=== PATIENT | female | born 1990 | race Caucasian/White ===

== ENCOUNTER 2020-02-05 12:51 | Emergency (ER) | payer BC ==
[2020-02-05] MEDS ORDERED: OXYCODONE-ACETAMINOPHEN 5-325 MG TABLET PO ONE (13:04)
--- NOTE | 2020-02-05 13:06 | ER Document Report ---
ED Medical Screen (RME) - General Chief Complaint: Abscess Stated Complaint: ABSCESS Time Seen by Provider: 02/05/20 13:00 Primary Care Provider: MALCOLM SALGADO MD [Primary Care Provider] - Follow up as needed Mode of Arrival: Ambulatory Information source: Patient Notes: 29-year-old female presented to ED for large pilonidal cyst. She states she is never had it this big before. She states she has had it I&D in the past. She does not have any history of MRSA. She does have a history of asthma. Her last menstrual period was 428. She states she found out she just had a miscarriage on Wednesday. He did have an ultrasound to find out she had miscarried. I have greeted and performed a rapid initial assessment of this patient. A comprehensive ED assessment and evaluation of the patient, analysis of test results and completion of medical decision making process will be conducted by an additional ED providers. TRAVEL OUTSIDE OF THE [place] IN LAST 30 DAYS: No - Related Data Allergies/Adverse Reactions: nickel Allergy (Verified 02/05/20 12:59) Past Medical History - Social History Frequency of alcohol use: Occasional Drug Abuse: None Physical Exam - Vital signs Vitals: Temp Pulse Resp BP Pulse Ox 98.7 F 86 18 117/79 100 02/05/20 12:58 02/05/20 12:58 02/05/20 12:58 02/05/20 12:58 02/05/20 12:58 Course - Vital Signs Vital signs: Temp Pulse Resp BP Pulse Ox 98.7 F 86 18 117/79 100 02/05/20 13:00 02/05/20 12:58 02/05/20 12:58 02/05/20 12:58 02/05/20 12:58 Doctor's Discharge - Discharge Referrals: MALCOLM SALGADO MD [Primary Care Provider] - Follow up as needed
[2020-02-05 13:56] LABS: ABSOLUTE EOSINOPHILS # (AUTO) 0.4 10^3/uL (0.0-0.6); ABSOLUTE LYMPHOCYTES (AUTO) 1.5 10^3/uL (0.5-4.7); ABSOLUTE MONOCYTES (AUTO) 0.6 10^3/uL (0.1-1.4); BASOPHILS % (AUTO) 0.3 % (0-2); EOSINOPHILS % (AUTO) 4.9 % (0-6); HEMATOCRIT 39.5 % (36.0-47.0); HEMOGLOBIN 13.7 g/dL (12.0-15.5); LYMPHOCYTES % (AUTO) 17.9 % (13-45); MEAN CORPUSCULAR HGB CONC 34.8 g/dL (32.0-36.0); MEAN CORPUSCULAR VOLUME 86 fl (80-97); MONOCYTES % (AUTO) 6.9 % (3-13); PLATELET COUNT 202 10^3/uL (150-450); RED BLOOD COUNT 4.57 10^6/uL (3.72-5.28); TOTAL CELLS COUNTED % (AUTO) 100 %; WHITE BLOOD COUNT 8.6 10^3/uL (4.0-10.5)
[2020-02-05 14:05] LABS: APPEARANCE,URINE SLIGHTLY-CLOUDY; BILIRUBIN,URINE NEGATIVE (NEGATIVE); COLOR,URINE YELLOW; GLUCOSE, URINE NEGATIVE (NEGATIVE); KETONES,URINE NEGATIVE (NEGATIVE); LEUKOCYTE ESTERASE,URINE NEGATIVE (NEGATIVE); NITRITE,URINE NEGATIVE (NEGATIVE); PROTEIN,URINE NEGATIVE (NEGATIVE); URINE SPECIFIC GRAVITY 1.016; UROBILINOGEN,URINE NEGATIVE mg/dL (<2.0)
[2020-02-05 14:09] LABS: ALBUMIN 4.4 g/dL (3.5-5.0); ALKALINE PHOSPHATASE 90 U/L (38-126); ANION GAP 5 (5-19); ASPARTATE AMINO TRANSFERASE 21 U/L (14-36); BILIRUBIN,TOTAL 0.6 mg/dL (0.2-1.3); BLOOD UREA NITROGEN 10 mg/dL (7-20); CALCIUM 9.7 mg/dL (8.4-10.2); CARBON DIOXIDE 27 mmol/L (22-30); CHLORIDE 105 mmol/L (98-107); GLUCOSE 89 mg/dL (75-110); POTASSIUM 4.1 mmol/L (3.6-5.0); TOTAL PROTEIN 7.6 g/dL (6.3-8.2)
--- NOTE | 2020-02-05 15:52 | ER Document Report ---
ED Skin Rash/Insect Bite/Abscs - General Chief Complaint: Abscess Stated Complaint: ABSCESS Time Seen by Provider: 02/05/20 13:00 Primary Care Provider: MALCOLM SALGADO MD [ACTIVE STAFF] - Follow up as needed MARCIN MULLEN MD [ACTIVE STAFF] - Follow up in 3-5 days (Call for outpatient follow-up appointment.) Mode of Arrival: Ambulatory Information source: Patient Notes: 29-year-old female past medical history significant for asthma presents to the emergency room complaining of a possible kind nidal abscess that she has had for the past 4 days. States she has had 2 or 3 over the past 2 years but is never had to have them lanced. States is been getting worse since yesterday. She denies any nausea, vomiting, no fevers. No trauma to her rectal area. Denies . TRAVEL OUTSIDE OF THE [place] IN LAST 30 DAYS: No - Related Data Allergies/Adverse Reactions: nickel Allergy (Verified 02/05/20 12:59) Past Medical History - General Information source: Patient - Social History Smoking Status: Never Smoker Frequency of alcohol use: Occasional Drug Abuse: None Family History: Reviewed & Not Pertinent Patient has homicidal ideation: No Review of Systems - Review of Systems Constitutional: No symptoms reported Cardiovascular: No symptoms reported Respiratory: No symptoms reported Gastrointestinal: No symptoms reported Skin: Other - Pilonidal abscess Neurological/Psychological: No symptoms reported -: Yes All other systems reviewed and negative Physical Exam - Vital signs Vitals: Temp Pulse Resp BP Pulse Ox 98.7 F 86 18 117/79 100 02/05/20 12:58 02/05/20 12:58 02/05/20 12:58 02/05/20 12:58 02/05/20 12:58 - General General appearance: Appears well, Alert In distress: Moderate - Respiratory Respiratory status: No respiratory distress Chest status: Nontender Breath sounds: Normal Chest palpation: Normal - Cardiovascular Rhythm: Regular Heart sounds: Normal auscultation Murmur: No - Abdominal Inspection: Normal Distension: No distension Bowel sounds: Normal Tenderness: Nontender Organomegaly: No organomegaly - Back Back: Normal, Nontender. No: CVA tenderness - Neurological Neuro grossly intact: Yes Cognition: Normal Orientation: AAOx4 [place] Coma Scale Eye Opening: Spontaneous [place] Coma Scale Verbal: Oriented [place] Coma Scale Motor: Obeys Commands [place] Coma Scale Total: 15 Speech: Normal Motor strength normal: LUE, RUE, LLE, RLE Sensory: Normal - Skin Skin Temperature: Warm Skin Moisture: Dry Skin Color: Normal Skin irregularity: Abscess Location of irregularity: Other - Buttock Character of irregularity: Erythematous Irregularity with: Swelling, Tenderness, Warmth Notes: Patient with a nonfluctuant 2 cm pilonidal abscess. There is a minimal amount of purulent drainage noted. It is erythematous, warm and tender to palpation. Course - Re-evaluation Re-evalutation: 02/05/20 15:50 Patient with a 2 cm nonfluctuant draining pilonidal cyst noted. It is warm and tender to palpation. Some purulent drainage noted. Patient is afebrile, nontoxic-appearing counseled on warm compresses 20 minutes 3 times a day. Antibiotics and pain medication as prescribed. Eforse reviewed no history of chronic narcotic abuse. Outpatient follow-up with general surgery as discussed. Provided with on-call physician. Patient was given strict return to the emergency room guidelines. Return for any new or worsening symptoms. All questions were answered. Patient verbalized understanding and agrees with plan of care. 02/05/20 20:32 - Vital Signs Vital signs: Temp Pulse Resp BP Pulse Ox 98.7 F 104 H 18 103/65 100 02/05/20 16:26 02/05/20 16:26 02/05/20 16:26 02/05/20 16:26 02/05/20 16:26 - Laboratory Result Diagrams: 02/05/20 13:15 02/05/20 13:15 Discharge - Discharge Clinical Impression: Pilonidal abscess Condition: Stable Disposition: HOME, SELF-CARE Instructions: Abscess ([facility]) Additional Instructions: Warm compresses and/or sitz bath 20 minutes 3 times a day. Medications as prescribed. Outpatient follow-up with general surgery as discussed. Return for any new or worsening symptoms. Prescriptions: Tramadol HCl [Ultram 50 mg Tablet] 50 mg PO Q4HP PRN #12 tab PRN Reason: Amoxicillin/Potassium Clav [Augmentin 875-125 Tablet] 1 tab PO Q12 #20 tablet Referrals: MALCOML SALGADO MD [ACTIVE STAFF] - Follow up as needed MARCIN MULLEN MD [ACTIVE STAFF] - Follow up in 3-5 days (Call for outpatient follow-up appointment.)
[2020-02-05 16:29] VITALS: BP 103/65
== END 2020-02-05 16:29 | disposition home or self-care (01) ==
LOC: ER 12:51
DX: L05.01 Pilonidal cyst with abscess (principal)
CPT/HCPCS: 36415; 80053; 81001; 85025; 99282

== ENCOUNTER 2020-03-28 08:18 | Day surgery (SDC) | payer BC ==
[~2020-03-28 08:18] MED LIST: CEFAZOLIN 2 GM/D5W RTU 2 GM/50 ML RTUPB IV PRN
[2020-03-28] MEDS ORDERED: CEFAZOLIN 2 GM/D5W RTU 2 GM/50 ML RTUPB IV ONE (09:00)
[2020-03-28] MEDS ORDERED: MIDAZOLAM 2 MG/2 ML INJ ONE (10:07)
[2020-03-28] MEDS ORDERED: FENTANYL CITRATE INJ/PF 100 MCG/2 ML AMPUL ONE (10:07)
[2020-03-28] MEDS ORDERED: PROPOFOL INJ 200 MG/20 ML VIAL IV ONE (10:07)
[2020-03-28] MEDS ORDERED: BUPIVACAINE INJ/PF LIPOSOME/PF 266 MG/20 ML SDV ONE (10:18)
[2020-03-28] MEDS ORDERED: OXYCODONE-ACETAMINOPHEN 5-325 MG TABLET PO PRN ×3 (10:58→11:31)
[2020-03-28] MEDS ORDERED: DIPHENHYDRAMINE HCL 50 MG/ML VIAL IV PRN (10:58)
[2020-03-28] MEDS ORDERED: FENTANYL CITRATE INJ/PF 100 MCG/2 ML AMPUL IV PRN ×3 (10:58)
[2020-03-28] MEDS ORDERED: MEPERIDINE HCL/PF INJ 25 MG/1 ML DISP.SYRIN IV PRN (10:58)
[2020-03-28] MEDS ORDERED: PROMETHAZINE HCL INJ 25 MG/1 ML VIAL IV PRN ×2 (10:58)
--- NOTE | 2020-03-28 11:27 | Operative Report ---
Nonrecallable Operative Report DATE OF SURGERY: 03/28/20 PREOPERATIVE DIAGNOSIS: pilonidal cyst POSTOPERATIVE DIAGNOSIS: pilonidal cyst OPERATION: pilonidal cystectomy SURGEON: RUSTY JOHNSON 1ST [employer] OFFICER: SHALINI BAEZA ANESTHESIA: GA TISSUE REMOVED OR ALTERED: pilonidal cyst COMPLICATIONS: none ESTIMATED BLOOD LOSS: 10cc INTRAOPERATIVE FINDINGS: see note PROCEDURE: Patient brought to the operating room in awake alert stable condition placed on the operative table in a prone position after being intubated. The back and buttock were prepped and draped in usual sterile fashion. Patient had a pilonidal nidus just above the buttock cleft and elliptical incision about 6 cm long by 1/2 cm wide was made around it dissection was carried down through subcutaneous tissue to the presacral fascia with Bovie cautery the subcutaneous tissue and multiple cyst were removed. The deep tissue was then reapproximated interrupted 3-0 Vicryl the skin was reapproximated interrupted 3-0 nylon a drain was placed in the depths of the wound and brought out into the buttock cleft and fixed there with a 2-0 nylon suture. Sterile dressing was applied which completed the procedure. MARTHA Boss was present for the entire procedure for help with wound retraction wound closure. Estimated blood loss was approximately 10 cc.
--- NOTE | 2020-03-28 11:31 | Discharge Summary ---
Discharge Summary (SDC) - Discharge Final Diagnosis: pilonidal cyst Date of Surgery: 03/28/20 Discharge Date: 03/28/20 Condition: Good Forms: Return to Work Treatment or Instructions: remove tape and dressing tomorrow evening ok to soak in sitz bath prn redress iwth gauze prn Prescriptions: Hydrocodone/Acetaminophen [[place] 10-325 mg Tablet] 1 tab PO Q6HP PRN #20 tablet PRN Reason: Referrals: RUSTY JOHNSON MD [ACTIVE STAFF] - 04/12/20 9:15 am Discharge Activity: Activity As Tolerated, No Lifting Over 10 Pounds Report the Following to Your Physician Immediately: Shortness of Breath, Nausea, Vomiting, Increase in Pain, Fever over 101 Degrees, Unusual Bleeding - [facility]
[2020-03-28] MEDS ORDERED: OXYCODONE-ACETAMINOPHEN 5-325 MG TABLET ONE (12:08)
[2020-03-28 14:22] VITALS: BP 106/74
[2020-03-28] MEDS ORDERED: ONDANSETRON HCL INJ/PF 4 MG/2 ML SDV ONE (14:43)
[2020-03-28] MEDS ORDERED: NEOSTIGMINE METHYLSULFATE 10 MG/10 ML VIAL ONE (14:43)
[2020-03-28] MEDS ORDERED: GLYCOPYRROLATE 1 MG/5 ML VIAL ONE (14:43)
[2020-03-28] MEDS ORDERED: DEXAMETHASONE SOD PHOSPHATE INJ 4 MG/1 ML VIAL ONE (14:43)
== END 2020-03-28 13:30 | disposition home or self-care (01) ==
LOC: OROUT 08:18
PROVIDERS: ATTEND Surgery
DX: L05.91 Pilonidal cyst without abscess (principal); J45.909 Unspecified asthma, uncomplicated; Z03.818 Encounter for observation for suspected exposure to other biological agents ruled out
CPT/HCPCS: 87635; 81025; 88304 ×2; 00300; 11771; J2250; J1100; J3010; J2710; J2405; J2704; J0690; C9290; J3490; C9803; 300